=== PATIENT | male | born 1955 | race Caucasian/White ===

== ENCOUNTER 2019-12-26 09:16 | Outpatient (REF) | payer OTHER, SELFPAY ==
[2019-12-26 21:10] LABS: Uric Acid 5.9 mg/dL (3.5-7.2)
== END 2019-12-26 09:36 ==
LOC: NCHCN 09:16
PROVIDERS: PCP Physician Assistant; Visit Provider Nurse Practitioner Family
DX: M10.071 Idiopathic gout, right ankle and foot (principal)
CPT/HCPCS: 84550

== ENCOUNTER 2021-08-18 09:50 | Outpatient (REF) | payer OTHER, SELFPAY ==
[2021-08-18 17:45] LABS: Anion Gap 6.8 mmol/L (3-11); BUN 16 mg/dL (7-18); CO2 26.2 mmol/L (21.0-32.0); CREATININE 1.2 mg/dL (0.70-1.30); Calcium 8.6 mg/dL (8.5-10.1); Chloride 107 mmol/L (98-107); Glucose 111 mg/dL (74-106); Potassium 4.4 mmol/L (3.5-5.1); Sodium 140 mmol/L (136-145)
== END 2021-08-18 09:51 | disposition home or self-care (01) ==
LOC: NCHCN 09:50
PROVIDERS: PCP Physician Assistant; Visit Provider Physician Assistant
DX: M10.071 Idiopathic gout, right ankle and foot (principal)
CPT/HCPCS: 80048; 84550

== ENCOUNTER 2024-12-28 12:00 | Outpatient (REF) | payer MEDICARE, SELFPAY ==
[2024-12-28 19:37] LABS: ALT 27 U/L (16-63); AST 20 U/L (15-37); Albumin 3.7 g/dL (3.4-5.0); Alkaline Phosphatase 90 U/L (46-116); Anion Gap 5.2 mmol/L (3-11); BUN 16 mg/dL (7-18); Bilirubin, Total 0.75 mg/dL (0.2-1.0); CO2 26.8 mmol/L (21.0-32.0); CREATININE 1.2 mg/dL (0.70-1.30); Calcium 8.8 mg/dL (8.5-10.1); Chloride 108 mmol/L (98-107); Estimated GFR 64.65 (mL/min/1.73m2); Glucose 101 mg/dL (74-106); Potassium 4.4 mmol/L (3.5-5.1); Sodium 140 mmol/L (136-145); Total Protein 6.9 g/dL (6.4-8.2)
== END 2024-12-28 12:01 | disposition home or self-care (01) ==
LOC: NCHCN 12:00
PROVIDERS: PCP Physician Assistant; Visit Provider Physician Assistant
DX: R73.03 Prediabetes (principal)
CPT/HCPCS: 80053

== ENCOUNTER 2025-02-08 06:59 | Day surgery (SDC) | payer MEDICARE, SELFPAY ==
[2025-02-08 07:31] VITALS: BP 118/75; PULSE 54; RESP 16; TEMP 36.2; O2SAT 98
[2025-02-08] MEDS: Tropicam./Phenyleph. (1/2.5%) 5 ML BTL OS ×3 (07:36→07:53)
--- NOTE | 2025-02-08 08:15 | ANES.PREOP_ITS ---
General Info Date of Service Date Performed: 02/08/25 Height: 5 ft 10 in Weight: 97.6 kg Body Mass Index (BMI): 30.9 Surgical Procedure: Operation Date: 02/08/25 09:40 Proposed Procedure Side Surgeon p Cataract Extraction with IOL Implant Left Sascha Smith MD Meds Allergies and Home Medications Allergies Allergy/AdvReac Type Severity Reaction Status Date / Time No Known Allergies Allergy Verified 02/08/25 07:37 Home Medication ?Medication ?Instructions ?Recorded acetaminophen 325 mg capsule 325 mg PO ONCE PRN 02/05/25 tamsulosin 0.4 mg capsule 0.4 mg PO QHS 02/05/25 Current Visit Medications: Current Medications Generic Name Dose Route Start Last Admin Trade Name Freq PRN Reason Stop Dose Admin Acetaminophen 1,000 mg 02/08/25 06:00 Acetaminophen 500 Mg Tab PO 03/10/25 05:59 Q4H PRN PRN Balanced Salt Solution 500 ml 02/08/25 06:00 Balanced Salt Soln.-Plus 500 Ml Bag OP 03/10/25 05:59 DIRECTED [facility] Miscellaneous Medication 0 ml 02/08/25 06:00 Prednisolone 1%, Moxifloxacin 0.5%, Bromfenac 0.09% 5.6ml Btl OS 03/10/25 05:59 DIRECTED [facility] Miscellaneous Medication 0 ml 02/08/25 06:00 02/08/25 07:43 Tropicam./Phenyleph. 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 Nicotine dependence Rectal polyp Osteoarthritis of knee Primary gout Prediabetes BPH (benign prostatic hyperplasia) Surgical History Surgical History History of rectal surgery Hx of tonsillectomy Tobacco Smoking/Tobacco Use Status: Current every day Tobacco Type: cigarettes Passive smoking exposure: Yes Alcohol Alcohol Intake: current Alcohol intake frequency: holidays/special occasions only Substance Use Substance use: Never Substance use type: does not use Vital Signs and Lab Results Vital Signs Most Recent Vital Signs in EMR: Most Recent Vital Signs Temp Pulse Resp BP Pulse Ox 36.2 C L 54 L 16 118/75 98 02/08/25 07:31 02/08/25 07:31 02/08/25 07:31 02/08/25 07:31 02/08/25 07:31 Lab Results Blood Type / Crossmatch: No Data to Display Complete Blood Count: No Data to Display Complete Metabolic Panel: No Data to Display Liver Function Panel: No Data to Display Coagulation Panel: No Data to Display Cardiac Panel: No Data to Display Arterial Blood Gas: No Data to Display Venous Blood Gas: No Data to Display Pancreas Panel: No Data to Display Thyroid Panel: No Data to Display Infectious Disease: No Data to Display Blood Cultures: No Data to Display Toxicology Panel: No Data to Display Anesthesia Assessment and Plan Anesthesia History Personal History: No History of Anesthesia Complications Family History: No Family History of Anesthesia Complications Exercise Tolerance Exercise Tolerance: Metabolic Equivalents>4 Pertinent Negatives Pertinent Negatives: No Symptoms of GERD Cardiac & Pulmonary Exam Cardiac Exam: Normal S1/S2 Heart Sounds Pulmonary Exam: Clear Bilateral Breath Sounds Implantable Cardiac Device Does patient have a Pacemaker or an ICD?: No Airway Exam Known Difficult Airway: No Mallampati Class: 2 Mouth Opening: Normal (> 3cm) Thyromental Distance: Less than 3 cm Neck Range of Motion: Full ROM Neck Circumference: Normal Teeth Condition: Removable Dentures/Plates Upper and Removable Dentures/Plates Lower ASA Classification ASA Score: ASA 2 Emergency Case?: No NPO Status NPO Status: NPO Clears >2 hours, Solids >8 hours Anesthesia Plan Resuscitation Status: Full Code Anesthesia Technique: MAC Anesthesia Airway Planned: Natural Airway Monitors Used: Standard Monitors
[2025-02-08 08:17] VITALS: BMI 30.9
[2025-02-08] MEDS: Tetracaine 0.5% 4 ML BTL OS (09:15)
[2025-02-08] MEDS: Povidone-Iodine Ophth 30 ML BTL (09:16)
[2025-02-08] MEDS: Lidocaine 1% Pres-Free 5 ML VIAL (09:21)
[2025-02-08] MEDS: Phenylephrine/Lidocaine (15/10) MG/ML 1 ML VIAL (09:22)
[2025-02-08] MEDS: Duovisc Viscoelastic System EACH 1 EACH (09:23)
[2025-02-08] MEDS: Balanced Salt Soln.-PLUS 500 ML BAG OP (09:23)
[2025-02-08] MEDS: Prednisolone 1%, Moxifloxacin 0.5%, Bromfenac 0.09% 5.6ML BTL OS (09:39)
[2025-02-08] MEDS: Moxifloxacin-PF 1 MG/ML VIAL (09:39)
[2025-02-08 09:44] VITALS: BP 119/80; PULSE 63; RESP 16; TEMP 36.5; O2SAT 96
--- NOTE | 2025-02-08 09:44 | W.PM.DSUDISC ---
Date of service: 02/08/25 Discharge Plan Disposition Patient Disposition: Home Discharge Details Attending Provider: Sascha Smith Primary Care Provider: Maria Luz Owens Home Meds and New Rx's Prescriptions: No Action tamsulosin 0.4 mg capsule 0.4 mg PO QHS acetaminophen 325 mg capsule 325 mg PO ONCE PRN Discharge Instructions Stand Alone Forms: DSU Post-Op Cataract, Katerine Myles (DSU) Discharge Orders Discharge Orders: Discharge Order (Routine); Ordered 02/08/25 Ordered By: Sascha Smith DS: Diagnosis Discharge Diagnosis (1) Nuclear age-related cataract, left eye: Status: Resolved
--- NOTE | 2025-02-08 09:45 | W.PM.OP ---
Operative Note Operative Note PRE-OP DIAGNOSIS: Nuclear cataract, left eye POST-OP DIAGNOSIS: same PROCEDURE: Cataract extraction using phacoemulsification with intraocular lens implant, left eye SURGEON: Sascha Smith ANESTHESIA TYPE: Local By Surgeon and MAC Refer to Anesthesia Record PATHOLOGY: none sent COMPLICATIONS: None Patient was transported to: same day Patient's condition: stable Implants: Keyshawn Clareon [id number] Indications: Progressive decreased vision due to cataract, left eye Procedure Description: CATARACT SURGERY OPERATIVE REPORT PREOPERATIVE DIAGNOSIS: Nuclear cataract, left eye POSTOPERATIVE DIAGNOSIS: Same OPERATION: Cataract extraction using phacoemulsification with posterior chamber intraocular lens implant, left eye. IOL: IOL [employer] Representative/Model: Keyshawn Clareon [id number] IOL Power: + 18.5 diopters IOL Serial Number: [id number] Optic Diameter: 6.0mm Haptic/Overall Diameter: 13.0mm PHACO INFO: Keyshawn [employer] BioCareurion Vision System with OZil and Active Fluidics Cumulative Dispersed Energy (CDE): 11.83 seconds SURGEON: Sascha Smith MD, ELIZABETH ANESTHESIA: Monitored Anesthesia Care (MAC), with local sub-tenon's anesthetic infiltration COMPLICATIONS: None SPECIMENS: None INDICATIONS FOR PROCEDURE: The patient is a 69-year-old male with history of diminished visual acuity in his left eye secondary to the development of nuclear cataract. He is significantly symptomatic that he desires cataract surgery in attempt to improve and maximize his vision. The option of cataract surgery was offered to the patient and he wished to proceed. See office notes for detailed information. PROCEDURE: The correct surgical eye was identified and marked as the left eye and the pupil was dilated in the preoperative area using mydriatics and cycloplegics. The dilated pupil size was 7.0 mm. Oral sedation was administered in the form of an Imprimis MKO Melt (midazolam 3mg/ketamine 25mg/ondansetron 2mg). The patient was brought to the operating room where cardiopulmonary monitoring was instituted and surgical time-out was performed, confirming the correct operative eye and IOL power. Topical anesthesia was administered and ophthalmic povidone-iodine 5% was instilled into the conjunctival fornices. The ed-ocular area was prepped with Betadine 10% solution and draped in the usual sterile fashion for intraocular surgery, including an aperture drape. A Tegaderm transparent film dressing was cut in half and used to cover the lashes and lid margins. Care was taken to sequester the lashes and lid margins under the Tegaderm dressing. A lid speculum was placed between the lids of the operative eye and the Keyshawn LuxOR Revalia operating microscope was maneuvered into position. Naif scissors were then used to make a conjunctival buttonhole approximately 6mm posterior to the limbus in the inferonasal quadrant. Blunt dissection was carried out to expose bare sclera, and a blunt-tipped sub-tenon?s anesthesia cannula was introduced and passed posteriorly along the globe where non-preserved plain lidocaine was injected into posterior sub-Tenon?s space. A sideport knife was used to make a paracentesis port. Intraocular phenylephrine/lidocaine was injected into the anterior chamber. The anterior chamber was then filled with viscoelastic. A keratome knife was used construct a two-plane clear corneal tunnel extending 2.0mm into clear cornea. A flap was raised on the anterior capsule and capsulorhexis forceps were used to complete a continuous curvilinear capsulorhexis of 5.0 mm. Balanced salt solution was then used to perform cortical cleaving hydrodissection and nuclear hydrodelineation until the lens could be freely rotated within the capsular bag. The lens nucleus was then disassembled and removed within the capsular bag and iris plane using phacoemulsification. Residual cortical material was removed using the irrigation/aspiration handpiece. The posterior capsule was carefully polished to remove as much residual lens epithelial cells as safely possible. The capsular bag was then inflated and the anterior chamber deepened with viscoelastic. The lens implant described above was inserted into the capsular bag using the Keyshawn Autonome Injector. A Kuglen hook was used to dial the IOL into position. Residual viscoelastic was then removed first from posterior to the IOL, then from the anterior chamber using the I/A handpiece. The lens implant was noted to center nicely within the capsular bag. The incisions were stromally hydrated, and the anterior chamber was reformed using BSS. Then 0.5cc of moxifloxacin 1.0mg/ml were injected into the capsular bag and anterior chamber. The incisions were checked with a Weck spear and found to be secure. Several drops of ophthalmic povidone-iodine 5% were then applied to the eye followed by two drops of combination steroid/NSAID/antibiotic solution. The drapes were removed and a clear plastic protective eye shield was placed over the eye. The patient was then returned to Same Day Surgery in stable condition. Date of Procedure: 02/08/25
[2025-02-08 10:02] VITALS: BP 119/78; PULSE 60; RESP 16; TEMP 36.5; O2SAT 96
--- NOTE | 2025-02-08 10:11 | W.ANESPOSTOP ---
Postoperative Evaluation Date, Time and Location Date Performed: 02/08/25 Time Performed: 10:01 Patient Location: Day Surgery Unit Vital Signs Most Recent Imported Vital Signs: Most Recent Vital Signs Temp Pulse Resp BP Pulse Ox 36.5 C 60 16 119/78 96 02/08/25 10:02 02/08/25 10:02 02/08/25 10:02 02/08/25 10:02 02/08/25 10:02 Pain Score Most Recent Pain Score: Most Recent Pain Score Pain Level 0 02/08/25 10:02 Assessment Mental Status: Awake (Alert & Oriented to Patient Baseline) Airway and Respiratory Function: Patent airway with normal (patient baseline) respiratory exam Cardiovascular Function: Hemodynamically Stable Hydration Status: Adequately Hydrated Nausea & Vomiting: No Nausea or Vomiting Pain: Pt. Denies Any Pain Peripheral Nerve Block: Patient did not receive a nerve block
== END 2025-02-08 10:13 | disposition home or self-care (01) ==
LOC: SUR 07:02
PROVIDERS: PCP Physician Assistant; Visit Provider Ophthalmology
PROC: (CPT 66984; principal; 2025-02-08 09:30)
DX: H25.12 Age-related nuclear cataract, left eye (principal)
CPT/HCPCS: 66984; 00123; V2632; J2003

== ENCOUNTER 2025-02-15 06:34 | Day surgery (SDC) | payer MEDICARE, SELFPAY ==
[2025-02-15 06:35] VITALS: BP 114/78; PULSE 60; RESP 18; TEMP 36.6; O2SAT 95
[2025-02-15] MEDS: Tropicam./Phenyleph. (1/2.5%) 5 ML BTL OD ×3 (06:44→07:01)
--- NOTE | 2025-02-15 07:45 | ANES.PREOP_ITS ---
General Info Date of Service Date Performed: 02/15/25 Height: 5 ft 10 in Weight: 98.1 kg Body Mass Index (BMI): 31.0 Surgical Procedure: Operation Date: 02/15/25 07:40 Proposed Procedure Side Surgeon p Cataract Extraction with IOL Implant Right Sascha Smith MD Meds Allergies and Home Medications Allergies Allergy/AdvReac Type Severity Reaction Status Date / Time No Known Allergies Allergy Verified 02/15/25 06:51 Home Medication ?Medication ?Instructions ?Recorded acetaminophen 325 mg capsule 325 mg PO ONCE PRN 02/05/25 tamsulosin 0.4 mg capsule 0.4 mg PO QHS 02/05/25 Current Visit Medications: Current Medications Generic Name Dose Route Start Last Admin Trade Name Freq PRN Reason Stop Dose Admin Acetaminophen 1,000 mg 02/15/25 06:00 Acetaminophen 500 Mg Tab PO 03/17/25 05:59 Q4H PRN PRN Balanced Salt Solution 500 ml 02/15/25 06:00 Balanced Salt Soln.-Plus 500 Ml Bag OP 03/17/25 05:59 DIRECTED COUNT INCLUDES [facility] Miscellaneous Medication 0 ml 02/15/25 06:00 Prednisolone 1%, Moxifloxacin 0.5%, Bromfenac 0.09% 5.6ml Btl OD 03/17/25 05:59 DIRECTED COUNT INCLUDES THE [facility] Miscellaneous Medication 0 ml 02/15/25 06:00 02/15/25 07:01 Tropicam./Phenyleph. 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 Nicotine dependence Rectal polyp Osteoarthritis of knee Primary gout Prediabetes BPH (benign prostatic hyperplasia) Surgical History Surgical History History of rectal surgery Hx of tonsillectomy Tobacco Smoking/Tobacco Use Status: Current every day Tobacco Type: cigarettes Passive smoking exposure: Yes Alcohol Alcohol Intake: current Alcohol intake frequency: holidays/special occasions only Substance Use Substance use: Never Substance use type: does not use Vital Signs and Lab Results Vital Signs Most Recent Vital Signs in EMR: Most Recent Vital Signs Temp Pulse Resp BP Pulse Ox 36.6 C 60 18 114/78 95 02/15/25 06:35 02/15/25 06:35 02/15/25 06:35 02/15/25 06:35 02/15/25 06:35 Lab Results Blood Type / Crossmatch: No Data to Display Complete Blood Count: No Data to Display Complete Metabolic Panel: No Data to Display Liver Function Panel: No Data to Display Coagulation Panel: No Data to Display Cardiac Panel: No Data to Display Arterial Blood Gas: No Data to Display Venous Blood Gas: No Data to Display Pancreas Panel: No Data to Display Thyroid Panel: No Data to Display Infectious Disease: No Data to Display Blood Cultures: No Data to Display Toxicology Panel: No Data to Display Anesthesia Assessment and Plan Anesthesia History Personal History: No History of Anesthesia Complications Family History: No Family History of Anesthesia Complications Exercise Tolerance Exercise Tolerance: Metabolic Equivalents>4 Pertinent Negatives Pertinent Negatives: No Major Cardiovascular Symptoms or Complaints and No Major Pulmonary Symptoms or Complaints Cardiac & Pulmonary Exam Cardiac Exam: Normal S1/S2 Heart Sounds Pulmonary Exam: Clear Bilateral Breath Sounds Implantable Cardiac Device Does patient have a Pacemaker or an ICD?: No Airway Exam Known Difficult Airway: No Mallampati Class: 2 Mouth Opening: Normal (> 3cm) Thyromental Distance: Less than 3 cm Neck Range of Motion: Full ROM Neck Circumference: Normal Teeth Condition: Removable Dentures/Plates Upper and Removable Dentures/Plates Lower ASA Classification ASA Score: ASA 2 Emergency Case?: No NPO Status NPO Status: NPO Clears >2 hours, Solids >8 hours Anesthesia Plan Resuscitation Status: Full Code Anesthesia Technique: MAC Anesthesia Airway Planned: Natural Airway Monitors Used: Standard Monitors
[2025-02-15 07:46] VITALS: BMI 31.0
[2025-02-15] MEDS: Tetracaine 0.5% 4 ML BTL OD (08:19)
[2025-02-15] MEDS: Phenylephrine/Lidocaine (15/10) MG/ML 1 ML VIAL (08:19)
[2025-02-15] MEDS: Lidocaine 1% Pres-Free 5 ML VIAL (08:23)
[2025-02-15] MEDS: Duovisc Viscoelastic System EACH 1 EACH (08:24)
[2025-02-15] MEDS: Povidone-Iodine Ophth 30 ML BTL (08:25)
[2025-02-15] MEDS: Balanced Salt Soln.-PLUS 500 ML BAG OP (08:25)
[2025-02-15] MEDS: Moxifloxacin-PF 1 MG/ML VIAL (08:30)
[2025-02-15] MEDS: Prednisolone 1%, Moxifloxacin 0.5%, Bromfenac 0.09% 5.6ML BTL OD (08:31)
[2025-02-15 08:42] VITALS: BP 143/88; PULSE 64; RESP 16; TEMP 36.6; O2SAT 97
--- NOTE | 2025-02-15 08:42 | W.PM.DSUDISC ---
Date of service: 02/15/25 Discharge Plan Disposition Patient Disposition: Home Discharge Details Attending Provider: Sascha Smith Primary Care Provider: Maria Luz Owens Home Meds and New Rx's Prescriptions: No Action tamsulosin 0.4 mg capsule 0.4 mg PO QHS acetaminophen 325 mg capsule 325 mg PO ONCE PRN Discharge Instructions Stand Alone Forms: DSU Post-Op Cataract, Katerine Myles (DSU) Discharge Orders Discharge Orders: Discharge Order (Routine); Ordered 02/15/25 Ordered By: Sascha Smith DS: Diagnosis Discharge Diagnosis (1) Nuclear age-related cataract, right eye: Status: Resolved
--- NOTE | 2025-02-15 08:43 | ROE_ITS ---
Operative Note Operative Note PRE-OP DIAGNOSIS: Nuclear cataract, right eye POST-OP DIAGNOSIS: same PROCEDURE: Cataract extraction using phacoemulsification with intraocular lens implant, right eye SURGEON: Sascha Smith ANESTHESIA TYPE: Local By Surgeon and MAC Refer to Anesthesia Record ESTIMATED BLOOD LOSS: 0 PATHOLOGY: none sent COMPLICATIONS: None Patient was transported to: same day Patient's condition: stable Implants: Keyshawn Clareon [id number] Indications: Progressive decreased vision due to cataract, right eye Procedure Description: CATARACT SURGERY OPERATIVE REPORT PREOPERATIVE DIAGNOSIS: Nuclear cataract, right eye POSTOPERATIVE DIAGNOSIS: Same OPERATION: Cataract extraction using phacoemulsification with posterior chamber intraocular lens implant, right eye. IOL: IOL [employer]/Or [employer] Detective/Model: Keyshawn Clareon [id number] IOL Power: + 19.0 diopters IOL Serial Number: [id number] Optic Diameter: 6.0mm Haptic/Overall Diameter: 13.0mm PHACO INFO: Keyshawn Centurion Vision System with OZil and Active Fluidics Cumulative Dispersed Energy (CDE): 14.25 seconds SURGEON: Sascha Smith MD, ELIZABETH ANESTHESIA: Monitored Anesthesia Care (MAC), with local sub-tenon's anesthetic infiltration COMPLICATIONS: None SPECIMENS: None INDICATIONS FOR PROCEDURE: The patient is a 69-year-old male with history of diminished visual acuity in both eyes secondary to the development of bilateral nuclear cataracts. He has already undergone cataract surgery in the left eye and is doing well postoperatively. He now presents for cataract surgery in the right eye. See office notes for detailed information. PROCEDURE: The correct surgical eye was identified and marked as the right eye and the pupil was dilated in the preoperative area using mydriatics and cycloplegics. The dilated pupil size was 7.0 mm. The patient elected to proceed without oral sedation. The patient was brought to the operating room where cardiopulmonary monitoring was instituted and surgical time-out was performed, confirming the correct operative eye and IOL power. Topical anesthesia was administered and ophthalmic povidone-iodine 5% was instilled into the conjunctival fornices. The ed-ocular area was prepped with Betadine 10% solution and draped in the usual sterile fashion for intraocular surgery, including an aperture drape. A Tegaderm transparent film dressing was cut in half and used to cover the lashes and lid margins. Care was taken to sequester the lashes and lid margins under the Tegaderm dressing. A lid speculum was placed between the lids of the operative eye and the Keyshawn LuxOR Revalia operating microscope was maneuvered into position. Naif scissors were then used to make a conjunctival buttonhole approximately 6mm posterior to the limbus in the inferonasal quadrant. Blunt dissection was carried out to expose bare sclera, and a blunt-tipped sub-tenon?s anesthesia cannula was introduced and passed posteriorly along the globe where non- preserved plain lidocaine was injected into posterior sub-Tenon?s space. A sideport knife was used to make a paracentesis port. Intraocular phenylephrine/lidocaine was injected into the anterior chamber. The anterior chamber was then filled with viscoelastic. A keratome knife was used to construct a two--plane clear corneal tunnel extending 2.0mm into clear cornea. A flap was raised on the anterior capsule and capsulorhexis forceps were used to complete a continuous curvilinear capsulorhexis of 5.0 mm. Balanced salt solution was then used to perform cortical cleaving hydrodissection and nuclear hydrodelineation until the lens could be freely rotated within the capsular bag. The lens nucleus was then disassembled and removed within the capsular bag and iris plane using phacoemulsification. Residual cortical material was removed using the I/A handpiece. The posterior capsule was carefully polished to remove as much residual lens epithelial cells as safely possible. The capsular bag was then inflated and the anterior chamber deepened with cohesive viscoelastic. The lens implant described above was inserted into the capsular bag using the Keyshawn Autonome Injector. A Kuglen hook was used to dial the IOL into position. Residual viscoelastic was then removed first from posterior to the IOL, then from the anterior chamber using the I/A handpiece. The lens implant was noted to center nicely within the capsular bag. The incisions were stromally hydrated, and the anterior chamber was reformed using BSS. Then 0.5cc of moxifloxacin 1.0mg/ml were injected into the capsular bag and anterior chamber. The incisions were checked with a Weck spear and found to be secure. Several drops of ophthalmic povidone-iodine 5% were then applied to the eye followed by two drops of combination steroid/NSAID/antibiotic solution. The drapes were removed and a clear plastic protective eye shield was placed over the eye. The patient was then returned to Same Day Surgery in stable condition. Date of Procedure: 02/15/25
--- NOTE | 2025-02-15 10:04 | W.ANESPOSTOP ---
Postoperative Evaluation Date, Time and Location Date Performed: 02/15/25 Time Performed: 08:55 Patient Location: Day Surgery Unit Vital Signs Most Recent Imported Vital Signs: Most Recent Vital Signs Temp Pulse Resp BP Pulse Ox 36.6 C 64 16 143/88 H 97 02/15/25 08:42 02/15/25 08:42 02/15/25 08:42 02/15/25 08:42 02/15/25 08:42 Pain Score Most Recent Pain Score: Most Recent Pain Score Pain Level 0 02/15/25 08:42 Assessment Mental Status: Awake (Alert & Oriented to Patient Baseline) Airway and Respiratory Function: Patent airway with normal (patient baseline) respiratory exam Cardiovascular Function: Hemodynamically Stable Hydration Status: Adequately Hydrated Nausea & Vomiting: No Nausea or Vomiting Pain: Pt. Denies Any Pain Peripheral Nerve Block: Patient did not receive a nerve block
== END 2025-02-15 09:00 | disposition home or self-care (01) ==
LOC: SUR 06:34
PROVIDERS: PCP Physician Assistant; Visit Provider Ophthalmology
PROC: (CPT 66984; principal; 2025-02-15 07:30)
DX: H25.11 Age-related nuclear cataract, right eye (principal); Z98.42 Cataract extraction status, left eye
CPT/HCPCS: 66984; 00123; V2632; J2003